=== PATIENT | female | born 1985 | race Caucasian/White ===

== ENCOUNTER → 2016-12-12 | Outpatient (CLI) | payer OTHER | LOC: HPND 08:00 | PROVIDERS: ATTEND Obstetrics & Gynecology | DX: O34.11 Maternal care for benign tumor of corpus uteri, first trimester (principal); Z3A.13 13 weeks gestation of pregnancy | CPT/HCPCS: 36416; 76813; 76817 ==

== ENCOUNTER → 2017-04-18 | Outpatient (CLI) | payer OTHER | LOC: HPND 08:10 | PROVIDERS: ATTEND Obstetrics & Gynecology | DX: O35.1XX0 Maternal care for (suspected) chromosomal abnormality in fetus, not applicable or unspecified (principal); O34.13 Maternal care for benign tumor of corpus uteri, third trimester; Z3A.31 31 weeks gestation of pregnancy | CPT/HCPCS: 36415; 76816; 76825; 76827; 93325 ==

== ENCOUNTER → 2017-05-09 | Outpatient (CLI) | payer OTHER | LOC: HPND 08:18 | PROVIDERS: ATTEND Obstetrics & Gynecology | DX: O40.3XX0 Polyhydramnios, third trimester, not applicable or unspecified (principal); O35.1XX0 Maternal care for (suspected) chromosomal abnormality in fetus, not applicable or unspecified | CPT/HCPCS: 76816 ==

== ENCOUNTER 2017-05-16 14:23 | Emergency (ER) | payer OTHER ==
--- NOTE | 2017-05-16 16:07 | PD ---
HPI Chief Complaint Water maybe leaking Date Seen: May 16, 2017 Time Seen: 15:50 Travel History International Travel<30 Days: No Contact w/Intl Traveler<30Days: No Known Affected Area: No History of Present Illness HPI 31-year-old white female at [address] stockton who presents with leakage of amniotic fluid. Amnio sure is positive and on speculum exam she's gross ruptured membranes with fluid pooling in the vault fluid seen oozing from the cervical os. heart rate tracing is reactive and no contractions seen. Patient says she feels fine and baby is active. 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 and surgery is been arranged for this baby Social History Alcohol Use: No Tobacco Use: No Substance Abuse: No Review of Systems General / Constitutional: No: Fever, Weight Gain, Chills, Other Eyes: No: Diploplia, Blurred Vision, Visual changes, Pain, Photophobia HENT: No: Headaches, Vertigo, Lightheadedness Cardiovascular: No: Irregular Rhythm, Chest Pain or Discomfort, Palpitations, Tachycardia, Syncope, Varicosities, Edema, Cyanosis Respiratory: No: Cough, Short of Breath, Other Gastrointestinal: No: Nausea, Vomiting, Diarrhea Genitourinary: No: Decreased Urinary Output, Oliguria Musculoskeletal: No: Limited ROM, Weakness, Cramping, Edema, Pain Skin: No Rash, No Itching, No Dryness, No Lumps, No Change in Pigmentation, No Change in Nails, No Alopecia, No Lesions Neurologic: No: Weakness, Dizziness, Syncope, Focal Abnormalities, Coordination Problem, Headache, Slurred Speech, Seizures Psychiatric: No: Depression, Suicidal Ideations, Homicidal Ideation Endocrine: No: Heat Intolerance, Cold Intolerance, Polydipsia, Polyuria, Other Physical Exam Narrative GENERAL: Well-nourished, well-developed patient. SKIN: Warm and dry. HEAD: Normocephalic and atraumatic. EYES: No scleral icterus. No injection or drainage. ENT: No nasal drainage noted. Mucous membranes pink. Airway patent. NECK: Supple, trachea midline. No JVD. CARDIOVASCULAR: Regular rate and rhythm without murmurs, gallops, or rubs. RESPIRATORY: Breath sounds equal bilaterally. No accessory muscle use. BREASTS: Bilateral exam showed no masses , no retractions, no nipple discharge. ABDOMEN/GI: Abdomen soft, non-tender, bowel sounds present, no rebound, no guarding Gravid to [35-] weeks size Fundal Height: [35-] GENITOURINARY: External Genitalia: intact and normal in appearance -] Speculum exam done and OB ED. 2 amnio sure is Faviola been positive. And on speculum exam gross ruptured membranes noted with pooled amniotic fluid the posterior fornix and fluid oozing from a of the cervix. Cervix: [Is high in the pelvis thick and fingertip at most dilated I did not do a digital exam only view through the speculum because the patient this time is not vasile and not an pain and I did not care to cause bacterial intrusion in the pelvis-] Dilatation: [Fingertip at most-] Effacement: [Thick-] Station: [-3] Presentation: [Patient states she was vertex on recent ultrasound-] Membranes: ruptured] Uterine Contractions: [none-] FHT's: Category: [1-] Baseline: [133-] Reactive: [-yes] Variability: [mod-] Decels: [none-] EXTREMITIES: No cyanosis or edema. BACK: Nontender without obvious deformity. No CVA tenderness. NEUROLOGICAL: Awake and alert. Motor and sensory grossly within normal limits. Five out of 5 muscle strength in all muscle groups. Normal speech. MDM Interpretation(s) 31-year-old white female at [address] stockton for care. She has PPROM at this time positive amnio sure and gross rupture noted on speculum exam. Cervix is thick and high in the pelvis fingertip at the most dilated, and she is not vasile heart rate tracing is reactive Plan The patient basically worse when he palmers plan to deliver there is other baby can have surgery and says she is going to go to when he [facility]. She may leave AMA to let her gravid to [facility] or she may decide to let us transfer via ambulance. I will discuss that with Dr. stockton and she and her OB doctor will come to a conclusion. Diagnosis Diagnosis: Primary Impression: premature rupture of membranes (PPROM) with unknown onset of labor Additional Impression: Duodenal atresia, , affecting care of mother, antepartum Disposition: 70 TRANSFER TO OTHER FACILITY Condition: Stable Mark Saucedo II, MD May 16, 2017 16:07
--- NOTE | 2017-05-16 18:11 | MH ---
cc: ENRIQUE NEIL M.D. DATE OF ADMISSION 05/16/2017 DATE 05/16/2017 at 5:30 p.m. 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 She had spontaneous rupture of running at approximately 12:15 p.m. today. She called the office I advised her to come in for evaluation. RN exam confirmed gross rupture AmniSure positive. Cervix appeared to be 1 cm. monitor is normal. Because of the suspected duodenal atresia, she has been planned for consultation at [facility] tomorrow to meet the [facility] to arrange to take over care and delivery there so the baby would have access to a tertiary center and pediatric surgeon. I recommended transport by [facility] to ensure maternal safety and rapid transport with alternative options to deliver here and transfer the baby or to go by car which she chose to do leaving against medical advice for private transport. She was given a copy of her records to take with her to [facility] and is aware that she is assuming responsibility for the safety of her self and the baby by the personal transport. MD WILY Rosas/DAVID /5:34 PM /5:47 PM MTDD
== END 2017-05-16 17:48 | disposition short-term general hospital (02) ==
LOC: HOBED 14:23
DX: O36.8130 Decreased fetal movements, third trimester, not applicable or unspecified (principal); Z3A.35 35 weeks gestation of pregnancy
CPT/HCPCS: 84112; 99284